=== PATIENT | female | born 1990 | race Two or more races ===

== ENCOUNTER 2020-03-16 21:39 | Emergency (ER) | payer MEDICAID, SELFPAY ==
[~2020-03-16] VITALS: Ht 154.9 cm; Wt 81.2 kg
[2020-03-16] MEDS ORDERED: MECLIZINE CHEWABLE 25 MG TAB PO ONE (23:00)
[2020-03-16 23:03] LABS: BASOPHILS % (AUTO) 1 % (0-1); EOSINOPHILS % (AUTO) 3 % (1-7); LYMPHOCYTES % (AUTO) 37 % (22-44); MEAN CORPUSCULAR HEMOGLOBIN 31.7 pg (27.0-34.8); MEAN CORPUSCULAR HGB CONC 34.1 g/dL (32.4-35.8); MEAN PLATELET VOLUME 8.2 fL (7.4-10.4); MONOCYTES % (AUTO) 4 % (2-9); NEUTROPHILS % (AUTO) 55 % (42-75); PLATELET COUNT 268 x10^3/uL (130-400); RED BLOOD COUNT 4.57 x10^6/uL (3.82-5.3); RED CELL DISTRIBUTION WIDTH 12.9 % (9.6-15.2)
[2020-03-16 23:04] LABS: MD NO
[2020-03-16] MEDS ORDERED: MECLIZINE CHEWABLE 25 MG TAB ONE (23:05)
--- NOTE | 2020-03-16 23:08 | NUR ---
PT CAME INTO ED TONIGHT DUE TO SUDDEN ONSET DIZZINESS. DENIES HEAD TRAUMA OR VISION CHANGES, PT GROSS NEURO INTACT, SITTING UP IN [facility], MEDICATED PER MAR, PROVIDED WARM BLANKETS. WCTM. WAITING FOR LAB RESULTS.
[2020-03-16 23:15] LABS: ALBUMIN 4.3 g/dL (3.4-5.0); ANION GAP 4 mmol/L (5-15); CALCIUM 9.2 mg/dL (8.5-10.1); CHLORIDE 106 mmol/L (98-107)
[2020-03-16 23:20] LABS: CREATININE 0.81 mg/dL (0.55-1.02)
[2020-03-17 00:02] VITALS: BP 122/77
--- NOTE | 2020-03-17 00:04 | NUR ---
Patient given discharge instructions and they have confirmed that they understand the instructions. Patient ambulatory with steady gait. nad, all additional questions answered appropriately. pt denies additional needs. no personal belongings left in room at wa
== END 2020-03-17 00:05 | disposition home or self-care (01) ==
LOC: ED 23:31
DX: R42 Dizziness and giddiness (principal); H93.19 Tinnitus, unspecified ear
CPT/HCPCS: 36415; 80048; 82040; 84703; 85025; 93005; 99284

== ENCOUNTER 2020-04-25 17:02 | Emergency (ER) | payer MEDICAID ==
[~2020-04-25] VITALS: Ht 162.6 cm; Wt 81.1 kg
[2020-04-25 19:43] LABS: CALCIUM 9.4 mg/dL (8.5-10.1); CREATININE 0.75 mg/dL (0.55-1.02)
[2020-04-25 19:48] LABS: BASOPHILS % (AUTO) 1 % (0-1); EOSINOPHILS % (AUTO) 2 % (1-7); LYMPHOCYTES % (AUTO) 43 % (22-44); MEAN CORPUSCULAR HGB CONC 34.4 g/dL (32.4-35.8); MEAN PLATELET VOLUME 7.8 fL (7.4-10.4); MONOCYTES % (AUTO) 5 % (2-9); NEUTROPHILS % (AUTO) 50 % (42-75); PLATELET COUNT 320 x10^3/uL (130-400); RED BLOOD COUNT 4.34 x10^6/uL (3.82-5.3); RED CELL DISTRIBUTION WIDTH 12.8 % (9.6-15.2)
[2020-04-25 19:50] LABS: MD NO
[2020-04-25 19:51] LABS: ANION GAP 3 mmol/L (5-15); CHLORIDE 104 mmol/L (98-107)
[2020-04-25 20:34] VITALS: BP 124/86
== END 2020-04-25 21:11 | disposition home or self-care (01) ==
LOC: ED 19:47
DX: R55 Syncope and collapse (principal); R42 Dizziness and giddiness; R51.9 Headache, unspecified; F41.9 Anxiety disorder, unspecified
CPT/HCPCS: 36415; 80048; 85025; 99283